=== PATIENT | female | born 1980 | race Caucasian/White ===

== ENCOUNTER 2020-11-12 05:00 | Inpatient (IN) ==
[2020-11-12] MEDS ORDERED: ceFAZolin 2,000 MG/50 ML DUPLEX IV ONE (05:11)
[2020-11-12] MEDS ORDERED: CITRIC ACID/SODIUM CITRATE 30 ML UDCUP PO ONE (05:11)
[2020-11-12] MEDS ORDERED: LACTATED RINGERS 1,000 ML IV ONE (05:12)
[2020-11-12] MEDS ORDERED: FAMOTIDINE 20 MG/2 ML VIAL IV ONE (05:12)
[2020-11-12] MEDS ORDERED: hydrOXYzine HCL 25 MG/1 ML VIAL IM PRN (05:12)
[2020-11-12] MEDS ORDERED: miSOPROStoL 200 MCG TABLET ONE (05:30)
[2020-11-12] MEDS ORDERED: TRANEXAMIC ACID 1,000 MG/10 ML VIAL ONE (05:30)
[2020-11-12] MEDS ORDERED: OXYTOCIN/LR 20 UNIT/1,000 ML BAG IV ONE ×3 (05:30→08:33)
[2020-11-12] MEDS ORDERED: CARBOPROST TROMETHAMINE 250 MCG/ML AMP IM ONE (05:30)
[2020-11-12] MEDS ORDERED: METHYLERGONOVINE 0.2 MG/1 ML AMP ONE (05:30)
[2020-11-12] MEDS ORDERED: ONDANSETRON 4 MG/2 ML VIAL IV PRN ×2 (05:43→08:33)
[2020-11-12 05:44] LABS: Basophils % 0.3 % (0.0-0.8); Eosinophils % 0.4 % (0.00-10.9); Hematocrit 34.4 VOL% (35.7-47.0); Hemoglobin 11.6 GM/DL (12.0-16.0); Immature Granulocytes % 0.8 %; Immature Granulocytes Absolute 0.08 #; Lymphocytes # 2.4 10*3/uL (1.4-4.0); Lymphocytes % 24.4 % (21.3-54.2); Mean Corpuscular HGB Conc 33.7 GM/DL (32-36); Mean Corpuscular Volume 93.2 FL (87-102); Mean Platelet Volume 9.9 FL (9.6-12.0); Monocytes % 6.9 % (1.7-12.7); Neutrophils % 67.2 % (38.7-73.9); Platelet Count 174 T/CUMM (130-400); Red Blood Count 3.69 MC/CUMM (3.8-5.5); Red Cell Distribution Width 13.3 % (9.3-17.3); White Blood Count 9.7 T/CUMM (4-12)
[2020-11-12] MEDS: LACTATED RINGERS 1,000 ML IV SCH ×3 (05:57→20:20)
[2020-11-12] MEDS ORDERED: METOCLOPRAMIDE 10 MG/2 ML VIAL ONE (06:11)
[2020-11-12] MEDS ORDERED: ONDANSETRON 4 MG/2 ML VIAL ONE ×2 (06:11→06:57)
[2020-11-12 06:12] LABS: Albumin 2.9 G/DL (3.4-5.0); Bilirubin,Total 0.5 MG/DL (0.20-1.00); Calcium 8.7 MG/DL (8.5-10.1); Osmolality,Calculated 271.7 MOS/KG (273-304); Potassium 3.5 MMOL/L (3.5-5.1); Total Protein 6.9 G/DL (6.4-8.2)
[2020-11-12] MEDS ORDERED: BUPIVACAINE SPINAL 0.75% 2 ML AMP SPINAL ONE (06:13)
[2020-11-12] MEDS ORDERED: LACTATED RINGERS 2,000 ML IV ONE (08:02)
[2020-11-12] MEDS ORDERED: PHENYLEPHRINE 1 MG/10 ML SYRINGE IV ONE (08:02)
[2020-11-12] MEDS ORDERED: ACETAMINOPHEN INJ 1,000 MG/100 ML VIAL IV ONE (08:03)
[2020-11-12] MEDS ORDERED: KETOROLAC 30 MG/1 ML VIAL ONE (08:03)
[2020-11-12 08:11] LABS: Cord Arterial Blood HCO3 26.6 MMOL/L
[2020-11-12 08:13] LABS: Bacteria,Urine Occasional /HPF (Few); Bilirubin,Urine Negative (Negative); Blood, Urine Negative (Negative); Glucose,Urine (UA) Negative (Negative); Ketones,Urine Negative (Negative); Mucus,Urine Occasional /LPF (Occasional); Nitrite,Urine Negative (Negative); Protein,Urine Negative; RBC,Urine <1 /HPF (0-4); Squamous Epithelial Cell,Urine Occasional /HPF (0-10); Urine Appearance CLEAR (Clear); Urine Color Straw (Yellow); Urine Specific Gravity 1.008 (1.001-1.035); Urine Urobilinogen < 2.0 EU/DL (0.2-1.0)
[2020-11-12 08:15] LABS: Cord Venous Blood PCO2 47.5 MMHG; Cord Venous Blood PO2 23.3 MMHG
[2020-11-12] MEDS ORDERED: WITCH HAZEL PADS 100/JAR TOP PRN (08:33)
[2020-11-12] MEDS ORDERED: DIPH/TET/ACEL PERT BOOSTER VACCINE 0.5 ML VIAL IM ONE (08:33)
[2020-11-12] MEDS ORDERED: LANOLIN 50% CREAM 0.3 OZ TUBE TOP PRN (08:33)
[2020-11-12] MEDS ORDERED: MEASLES/MUMPS/RUBELLA VACCINE 0.5 ML VIAL SUBCUT ONE (08:33)
[2020-11-12] MEDS ORDERED: RHO(D) IMMUNE GLOBULIN 300 MCG SYRINGE IM ONE (08:33)
[2020-11-12] MEDS ORDERED: BENZOCAINE 20%/MENTHOL 0.5% SPRAY 56 GM CAN TOP PRN (08:33)
[2020-11-12] MEDS ORDERED: ACETAMINOPHEN 325 MG TABLET PO PRN (08:33)
[2020-11-12] MEDS ORDERED: BISACODYL 10 MG SUPP RECTAL PRN (08:33)
[2020-11-12] MEDS ORDERED: KETOROLAC 10 MG TABLET PO PRN (08:35)
[2020-11-12] MEDS ORDERED: KETOROLAC 30 MG/1 ML VIAL IM SCH ×2 (09:00→14:00)
[2020-11-12] MEDS ORDERED: ACETAMINOPHEN 500 MG TABLET PO PRN (14:00)
[2020-11-12] MEDS: KETOROLAC 30 MG/1 ML VIAL IV SCH ×2 (14:07→20:02)
[2020-11-12] MEDS: diphenhydrAMINE 50 MG/1 ML VIAL IV PRN ×3 (14:16→22:56)
[2020-11-12] MEDS: DOCUSATE SODIUM 100 MG CAPSULE PO SCH ×2 (15:32→22:55)
[2020-11-12] MEDS: ACETAMINOPHEN/CODEINE 300-30 MG TABLET PO PRN ×2 (16:09→20:03)
[2020-11-12] MEDS: SIMETHICONE CHEW 80 MG TABLET PO PRN (22:56)
[2020-11-13] MEDS: ACETAMINOPHEN/CODEINE 300-30 MG TABLET PO PRN ×5 (02:07→17:56)
[2020-11-13] MEDS: KETOROLAC 30 MG/1 ML VIAL IV SCH (02:07)
[2020-11-13] MEDS: diphenhydrAMINE 50 MG/1 ML VIAL IV PRN (03:57)
[2020-11-13 06:59] LABS: Basophils % 0.3 % (0.0-0.8); Eosinophils # 0.1 10*3/uL (0.0-0.87); Eosinophils % 0.9 % (0.00-10.9); Hematocrit 29.6 VOL% (35.7-47.0); Immature Granulocytes % 0.8 %; Immature Granulocytes Absolute 0.08 #; Lymphocytes # 1.3 10*3/uL (1.4-4.0); Lymphocytes % 13.8 % (21.3-54.2); Mean Corpuscular HGB Conc 32.4 GM/DL (32-36); Mean Corpuscular Volume 96.4 FL (87-102); Mean Platelet Volume 9.8 FL (9.6-12.0); Monocytes % 5.5 % (1.7-12.7); Neutrophils % 78.7 % (38.7-73.9); Platelet Count 151 T/CUMM (130-400); Red Blood Count 3.07 MC/CUMM (3.8-5.5); Red Cell Distribution Width 13.5 % (9.3-17.3); White Blood Count 9.6 T/CUMM (4-12)
[2020-11-13 07:01] LABS: Hemoglobin 9.6 GM/DL (12.0-16.0)
[2020-11-13] MEDS ORDERED: MAGNESIUM HYDROXIDE SUSP 30 ML UDCUP PO PRN (07:24)
[2020-11-13] MEDS: hydrOXYzine HCL 25 MG TABLET PO PRN ×2 (07:38→17:56)
[2020-11-13] MEDS: SIMETHICONE CHEW 80 MG TABLET PO PRN (07:39)
[2020-11-13] MEDS: DOCUSATE SODIUM 100 MG CAPSULE PO SCH ×3 (07:39→20:17)
[2020-11-13] MEDS: MULTIVITAMIN (PRENATAL) TABLET PO SCH ×2 (07:39→10:42)
[2020-11-13] MEDS: IBUPROFEN 800 MG TABLET PO PRN ×3 (08:37→20:13)
[2020-11-13] MEDS ORDERED: diphenhydrAMINE CAP 25 MG CAPSULE ONE (11:54)
[2020-11-13] MEDS ORDERED: diphenhydrAMINE CAP 25 MG CAPSULE PO PRN (12:06)
[2020-11-14] MEDS: ACETAMINOPHEN/CODEINE 300-30 MG TABLET PO PRN ×3 (00:36→08:37)
[2020-11-14] MEDS: IBUPROFEN 800 MG TABLET PO PRN (03:40)
[2020-11-14] MEDS: MULTIVITAMIN (PRENATAL) TABLET PO SCH (08:26)
[2020-11-14] MEDS: SIMETHICONE CHEW 80 MG TABLET PO PRN (08:26)
[2020-11-14] MEDS ORDERED: amLODIPine 10 MG TABLET PO SCH (09:00)
[2020-11-14 10:16] VITALS: BP 138/76
[2020-11-14] MEDS: DOCUSATE SODIUM 100 MG CAPSULE PO SCH (10:17)
== END 2020-11-14 10:50 | disposition home or self-care (01) | DRG 784 ==
LOC: N.LDOUT 05:00 → N.LD 05:02 → N.OB 11:43
PROVIDERS: ADMIT Specialist; ATTEND Specialist